=== PATIENT | male | born 1990 | race Hispanic/Latino ===

== ENCOUNTER 2025-03-18 14:36 | Emergency (ER) | payer SELFPAY ==
[~2025-03-18] VITALS: Ht 177.8 cm; Wt 152.0 kg
[2025-03-18 16:06] VITALS: BP 134/104; PULSE 109; RESP 18; TEMP 97.9; O2SAT 99
== END 2025-03-18 18:16 | disposition left against medical advice (07) ==
LOC: EDH 14:36
DX: M54.32 Sciatica, left side (principal); Z53.21 Procedure and treatment not carried out due to patient leaving prior to being seen by health care provider